=== PATIENT | male | born 1950 | race Caucasian/White ===

== ENCOUNTER → 2020-11-29 | Outpatient (CLI) | payer MEDICARE ==
[~2020-11-29] MED LIST: ASPI-161 PO; ATOR40TA75 PO; CALC500T61 PO; FINA5TAB2 PO; HOME MED LIST COMPLETE! XX SCH; ISOS1TAB35 PO; LIDOCAINE 1% MDV 20ML VIAL As Ordered ONE; LISI10TA22 PO; METO1TAB87 PO; NITR0.4S14 SL; SODIUM BICARBONATE 8.4% INJ 50MEQ 50 ML VIAL As Ordered ONE; TAMS1CAP17
--- NOTE | 2020-11-29 10:16 | REP ---
INDICATION: LT LOWER LOBE MASS. COMPARISON: None. TECHNIQUE: The procedure is performed by Joie M[facility]quez [facility], under the direct supervision of Dr. Phelsp. The risks and benefits of the procedure were explained to the patient and informed consent was obtained both orally and written. Directly prior to the start of the procedure, a formal timeout was done in the exam room. The the patient was brought into the CT room and placed on their right side to localized the left lower lobe lesion. It was decided after the initial targeting that the patient being prone might give us better access, before the patient was repositioned the patient had a bout of nausea and vomited. The patient was placed in the prone position and the lesion was re-targeted. After re-targeting the patient's heart rate increased and he stated he was having a difficult time breathing. The O2 saturation was at 100% on room air and his heart rate increased to 119 beats per minute. At this time the patient stated he could not continue with the biopsy and had another episode of vomiting. FINDINGS: The left lower lobe mass has increased in size measuring 3.2 x 2.1 cm on today's exam. This measured 1.3 cm in greatest diameter on the CT study from September 17, 2020. The patient was brought back to the interventional radiology department and after the appropriate amount of convalescence and after his heart rate had decreased to a suitable level the patient was discharged home with his daughter. IMPRESSION: Attempted CT guided biopsy. Biopsy aborted due to patient anxiety and discomfort factors. He did not wish to continue. The left lower lobe lung mass has increased in size measuring 3.2 x 2.1 cm on today's exam. <Electronically signed by Joie Márquez > 11/29/20 0970 <Electronically signed by Marcus Phelps > 11/29/20 1012
== END ==
LOC: M IRPRO 07:48 → EDUNIT# 09:00
PROVIDERS: ATTEND Internal Medicine Pulmonary Disease
DX: R91.1 Solitary pulmonary nodule (principal); Z53.8 Procedure and treatment not carried out for other reasons